=== PATIENT | female | born 1960 | race Caucasian/White ===

== ENCOUNTER 2019-12-01 18:06 | Emergency (ER) | payer SELFPAY ==
[2019-12-01 19:15] LABS: Absolute Lymphocytes (CBC) 1.5 K/uL (0.7-4.9); Basophils % 0.9 % (0-1.3); Lymphocytes % 25.7 % (15.3-44.8); RBC Red Blood Cell Count 4.62 M/uL (3.86-4.86)
--- NOTE | 2019-12-01 19:36 | RAD REPORT ---
EXAM DESCRIPTION: RAD - Chest Single View - 12/01/2019 7:23 pm CLINICAL HISTORY: CHEST PAIN Chest pain. COMPARISON: No comparisons FINDINGS: Portable technique limits examination quality. The lungs are grossly clear. The heart is normal in size. No displaced fractures. IMPRESSION: No acute intrathoracic process suspected.
[2019-12-01 19:37] LABS: Urine Bacteria <20 /HPF (<20); Urine Culture Reflex Order NOT NEEDED; Urine RBC <5 /HPF (NONE SEEN)
[2019-12-01 20:01] LABS: ALT/SGPT 17 U/L (12-78); AST/SGOT 10 U/L (15-37); Albumin 3.3 g/dL (3.4-5.0); Alkaline Phosphatase 96 U/L (45-117); BUN Blood Urea Nitrogen 9 mg/dL (7-18); Bicarbonate 29 mmol/L (21-32); Bilirubin Direct < 0.1 mg/dL (0-0.2); Bilirubin Total 0.1 mg/dL (0.2-1.0); Glucose Level 109 mg/dL (74-106); Magnesium 2.2 mg/dL (1.8-2.4); NT PRO-BNP 23 pg/mL (<125); Potassium 3.5 mmol/L (3.5-5.1); Sodium Level 142 mmol/L (136-145); Troponin (Emerg Dept Use Only) < 0.02 ng/mL (0.0-0.045)
--- NOTE | 2019-12-01 20:11 | EDPHYS ---
Physician Documentation [facility] Name: Lizabeth Major Age: 59 yrs Sex: Female : 1960 Arrival Date: 12/01/2019 Time: 18:09 Bed 14 Private MD: ED Physician Clyde Fajardo HPI: 12/02 01:35 This 59 yrs old Female presents to ER via EMS with complaints of Chest snw Tightness. 01:35 Onset: The symptoms/episode began/occurred last night. Associated signs and symptoms: snw The patient has no apparent associated signs or symptoms. Modifying factors: The patient symptoms are alleviated by gone at this time, the patient symptoms are aggravated by nothing. The patient has not experienced similar symptoms in the past. It is unknown whether or not the patient has recently seen a physician. 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 Historical: - Allergies: 12/01 18:12 No Known Allergies; ca1 - PMHx: 18:12 Hypertension; ca1 - PSHx: 18:12 Hysterectomy; Appendectomy; ca1 - Immunization history:: Adult Immunizations not up to date. - Social history:: Smoking status: Patient reports the use of cigarette tobacco products, smokes one-half pack cigarettes per day. - Ebola Screening: : Patient negative for fever greater than or equal to 101.5 degrees Fahrenheit, and additional compatible Ebola Virus Disease symptoms Patient denies exposure to infectious person Patient denies travel to an Ebola-affected area in the 21 days before illness onset No symptoms or risks identified at this time. ROS: 12/02 01:34 Constitutional: Negative for fever, chills, and weight loss, Eyes: Negative for injury, snw pain, redness, and discharge, ENT: Negative for injury, pain, and discharge, Neck: Negative for injury, pain, and swelling, Respiratory: Negative for shortness of breath, cough, wheezing, and pleuritic chest pain, Abdomen/GI: Negative for abdominal pain, nausea, vomiting, diarrhea, and constipation, Back: Negative for injury and pain, : Negative for injury, bleeding, discharge, and swelling, MS/Extremity: Negative for injury and deformity, Skin: Negative for injury, rash, and discoloration, Neuro: Negative for headache, weakness, numbness, tingling, and seizure. Abdomen/GI: Negative for abdominal pain, nausea, vomiting, diarrhea, and constipation. Cardiovascular: Positive for chest pain, of the chest. Exam: 01:34 Constitutional: This is a well developed, well nourished patient who is awake, alert, snw and in no acute distress. Head/Face: Normocephalic, atraumatic. Eyes: Pupils equal round and reactive to light, extra-ocular motions intact. Lids and lashes normal. Conjunctiva and sclera are non-icteric and not injected. Cornea within normal limits. Periorbital areas with no swelling, redness, or edema. ENT: Nares patent. No nasal discharge, no septal abnormalities noted. Tympanic membranes are normal and external auditory canals are clear. Oropharynx with no redness, swelling, or masses, exudates, or evidence of obstruction, uvula midline. Mucous membranes moist. Neck: Trachea midline, no thyromegaly or masses palpated, and no cervical lymphadenopathy. Supple, full range of motion without nuchal rigidity, or vertebral point tenderness. No Meningismus. Chest/axilla: Normal chest wall appearance and motion. Nontender with no deformity. No lesions are appreciated. Cardiovascular: Regular rate and rhythm with a normal S1 and S2. No gallops, murmurs, or rubs. Normal PMI, no JVD. No pulse deficits. Respiratory: Lungs have equal breath sounds bilaterally, clear to auscultation and percussion. No rales, rhonchi or wheezes noted. No increased work of breathing, no retractions or nasal flaring. Abdomen/GI: Soft, non-tender, with normal bowel sounds. No distension or tympany. No guarding or rebound. No evidence of tenderness throughout. Back: No spinal tenderness. No costovertebral tenderness. Full range of motion. Skin: Warm, dry with normal turgor. Normal color with no rashes, no lesions, and no evidence of cellulitis. MS/ Extremity: Pulses equal, no cyanosis. Neurovascular intact. Full, normal range of motion. Neuro: Awake and alert, GCS 15, oriented to person, place, time, and situation. Cranial nerves II-XII grossly intact. Motor strength 5/5 in all extremities. Sensory grossly intact. Cerebellar exam normal. Normal gait. Psych: Awake, alert, with orientation to person, place and time. Behavior, mood, and affect are within normal limits. Vital Signs: 12/01 18:12 BP 145 / 84; Pulse 88; Resp 17 S; Temp 98.1(O); Pulse Ox 98% on R/A; Weight 72.12 kg ca1 (R); Height 5 ft. 7 in. (170.18 cm) (R); Pain 6/10; 19:24 BP 139 / 87; Pulse 81; Resp 20 S; Pulse Ox 99% on R/A; ca1 20:20 BP 121 / 81; Pulse 81; Resp 17 S; Pulse Ox 99% on R/A; ca1 18:12 Body Mass Index 24.90 (72.12 kg, 170.18 cm) ca1 MDM: 18:10 Patient medically screened. snw 20:11 Data reviewed: vital signs, nurses notes, lab test result(s), EKG, radiologic studies. snw Data interpreted: Pulse oximetry: on room air is 99 %. Interpretation: normal. Counseling: I had a detailed discussion with the patient and/or guardian regarding: the historical points, exam findings, and any diagnostic results supporting the discharge/admit diagnosis, the presence of at least one elevated blood pressure reading (>120/80) during this emergency department visit, lab results, radiology results, need for 2nd troponin and EKG. Response to treatment: pt remains pain free. Refusal of service: The patient/guardian displays adequate decision making capability and despite a detailed discussion of alternatives, benefits, risks, and consequences refuses: pt does not wish to await repeat trop or EKG, states she will rted prn pain. Special discussion: Based on the patient's history, exam, and Dx evaluation, there is no indication for emergent intervention or inpatient Tx. It is understood by the patient/guardian that if the Sx's persist or worsen they need to return immediately for re-evaluation. Based on the history and exam findings, there is no indication for further emergent testing or inpatient evaluation. I discussed with the patient/guardian the need to see the eyewear manufacturing supervisor for further evaluation of the symptoms. I discussed with the patient/guardian the need to see the primary care provider for further evaluation of the symptoms. 12/01 18:53 Order name: Urine Culture snw 12/01 18:53 Order name: Urine Microscopic Only; Complete Time: 19:41 snw 12/01 18:53 Order name: Basic Metabolic Panel; Complete Time: 20:02 w 12/01 18:53 Order name: CBC with Diff; Complete Time: 19:23 w 12/01 18:53 Order name: LFT's; Complete Time: 20:02 w 12/01 18:53 Order name: Magnesium; Complete Time: 20:02 w 12/01 18:53 Order name: Urine Dipstick-Ancillary (obtain specimen); Complete Time: 18:51 snw 12/01 18:53 Order name: NT PRO-BNP; Complete Time: 20:02 w 12/01 18:53 Order name: PT-INR; Complete Time: 19:23 w 12/01 18:53 Order name: Troponin (emerg Dept Use Only); Complete Time: 20:02 w 12/01 18:53 Order name: XRAY Chest (1 view); Complete Time: 19:41 w 12/01 18:53 Order name: EKG; Complete Time: 18:54 w 12/01 18:53 Order name: Cardiac monitoring; Complete Time: 18:51 w 12/01 18:56 Order name: Urine Dipstick--Ancillary (enter results) bd 12/01 18:53 Order name: EKG - Nurse/Tech; Complete Time: 18:51 w 12/01 18:53 Order name: IV Saline Lock; Complete Time: 18:59 w 12/01 18:53 Order name: Labs collected and sent; Complete Time: 18:59 w 12/01 18:53 Order name: O2 Per Protocol; Complete Time: 18:51 w 12/01 18:53 Order name: O2 Sat Monitoring; Complete Time: 18:51 snw Administered Medications: No medications were administered Disposition: 12/02 16:42 Co-signature as Attending Physician, Clyde Fajardo MD. rn Disposition: 12/01/19 20:10 Discharged to Home. Impression: Chest pain, unspecified. - Condition is Stable. - Discharge Instructions: Nonspecific Chest Pain, Gastroesophageal Reflux Disease, Adult, Hypertension, Aspirin and Your Heart. - Prescriptions for Pepcid 20 mg Oral Tablet - take 1 tablet by ORAL route once daily; 20 tablet. - Medication Reconciliation Form, Thank You Letter, Antibiotic Education, Prescription Opioid Use form. - Follow up: Emergency Department; When: As needed; Reason: Worsening of condition. Follow up: Private Physician; When: 2 - 3 days; Reason: Recheck today's complaints, Continuance of care, Re-evaluation by your physician. Signatures: Dispatcher [employer] ED Lottie Oviedo, BOWL ATTENDANT-C BOWL ATTENDANT-Csnw Clyde Fajardo MD MD rn Acob, GELA Conley RN ca1 Corrections: (The following items were deleted from the chart) 12/01 20:23 20:10 12/01/2019 20:10 Discharged to Home. Impression: Chest pain, unspecified. ca1 Condition is Stable. Forms are Medication Reconciliation Form, Thank You Letter, Antibiotic Education, Prescription Opioid Use. Follow up: Emergency Department; When: As needed; Reason: Worsening of condition. Follow up: Private Physician; When: 2 - 3 days; Reason: Recheck today's complaints, Continuance of care, Re-evaluation by your physician. snw
--- NOTE | 2019-12-01 20:11 | ER ---
Nurse's Notes [facility] Name: Lizabeth Major Age: 59 yrs Sex: Female : 1960 Arrival Date: 12/01/2019 Time: 18:09 Bed 14 Private MD: Diagnosis: Chest pain, unspecified Presentation: 12/01 18:09 Presenting complaint: EMS states: Chest tightness since last night. Reports not feeling ca1 well for a few days, weakness and numbness on L upper arm, weakness on both legs, numbness on toes. Reports nausea and lightheadedness, cough x weeks and diarrhea x 2 days. Denies chills, fever and vomiting. Transition of care: patient was not received from another setting of care. Onset of symptoms was December 01, 2019. Risk Assessment: Do you want to hurt yourself or someone else? Patient reports no desire to harm self or others. Initial Sepsis Screen: Does the patient meet any 2 criteria? No. Patient's initial sepsis screen is negative. Does the patient have a suspected source of infection? No. Patient's initial sepsis screen is negative. Care prior to arrival: None. 18:09 Method Of Arrival: EMS: [facility] ca1 18:09 Acuity: VEDA 3 ca1 Historical: - Allergies: 18:12 No Known Allergies; ca1 - PMHx: 18:12 Hypertension; ca1 - PSHx: 18:12 Hysterectomy; Appendectomy; ca1 - Immunization history:: Adult Immunizations not up to date. - Social history:: Smoking status: Patient reports the use of cigarette tobacco products, smokes one-half pack cigarettes per day. - Ebola Screening: : Patient negative for fever greater than or equal to 101.5 degrees Fahrenheit, and additional compatible Ebola Virus Disease symptoms Patient denies exposure to infectious person Patient denies travel to an Ebola-affected area in the 21 days before illness onset No symptoms or risks identified at this time. Screenin:13 Abuse screen: Denies threats or abuse. Denies injuries from another. Nutritional ca1 screening: No deficits noted. Tuberculosis screening: No symptoms or risk factors identified. Fall Risk IV access (20 points). Assessment: 18:13 General: Appears in no apparent distress. comfortable, Behavior is calm, cooperative, ca1 appropriate for age. Pain: Complains of pain in mid-sternal area Pain does not radiate. Pain currently is 6 out of 10 on a pain scale. Quality of pain is described as burning, Pain began 1 day ago. Is intermittent. Neuro: Level of Consciousness is awake, alert, obeys commands, Oriented to person, place, time, situation, Appropriate for age. Neuro: Automatic Paint Sprayer Operator are equal bilaterally Moves all extremities. Speech is normal, Facial symmetry appears normal, Pupils are PERRLA, Intact. Cardiovascular: Heart tones S1 S2 present Capillary refill < 3 seconds Patient's skin is warm and dry. Cardiovascular: Reports lightheadedness, nausea. Respiratory: Airway is patent Respiratory effort is even, unlabored, Respiratory pattern is regular, symmetrical, Breath sounds are clear bilaterally. Respiratory: Reports cough that is since weeks ago. GI: Abdomen is flat, non-distended, Bowel sounds present X 4 quads. Abd is soft and non tender X 4 quads. : No signs and/or symptoms were reported regarding the genitourinary system. EENT: No signs and/or symptoms were reported regarding the EENT system. Derm: Skin is intact, is healthy with good turgor, Skin is pink, warm \T\ dry. Musculoskeletal: Circulation, motion, and sensation intact. Capillary refill < 3 seconds, Range of motion: intact in all extremities. 19:24 Reassessment: Patient appears in no apparent distress at this time. Patient and/or ca1 family updated on plan of care and expected duration. Pain level reassessed. Patient is alert, oriented x 3, equal unlabored respirations, skin warm/dry/pink. 20:20 Reassessment: Patient appears in no apparent distress at this time. Patient is alert, ca1 oriented x 3, equal unlabored respirations, skin warm/dry/pink. Vital Signs: 18:12 BP 145 / 84; Pulse 88; Resp 17 S; Temp 98.1(O); Pulse Ox 98% on R/A; Weight 72.12 kg ca1 (R); Height 5 ft. 7 in. (170.18 cm) (R); Pain 6/10; 19:24 BP 139 / 87; Pulse 81; Resp 20 S; Pulse Ox 99% on R/A; ca1 20:20 BP 121 / 81; Pulse 81; Resp 17 S; Pulse Ox 99% on R/A; ca1 18:12 Body Mass Index 24.90 (72.12 kg, 170.18 cm) ca1 ED Course: 18:09 Patient arrived in ED. ca1 18:09 Lottie Oviedo FNP-C [facility]. snw 18:09 Clyde Fajardo MD is Attending Physician. snw 18:11 Triage completed. ca1 18:12 Arm band placed on right wrist. ca1 18:13 Patient has correct armband on for positive identification. Placed in gown. Bed in low ca1 position. Call light in reach. Side rails up X 1. case monitor on. Pulse ox on. NIBP on. Warm blanket given. 18:13 Patient maintains SpO2 saturation greater than 95% on room air. ca1 18:24 Yael Pritchett, GELA is Primary Nurse. ca1 18:25 EKG done, by ED staff, reviewed by Lottie PRICE. ca1 18:55 Initial lab(s) drawn, by me, sent to lab. Inserted saline lock: 22 gauge in right ca1 antecubital area, using aseptic technique. Blood collected. 19:25 XRAY Chest (1 view) In Process Unspecified. EDMS 19:43 No provider procedures requiring assistance completed. ca1 20:22 IV discontinued, intact, bleeding controlled, No redness/swelling at site. Pressure ca1 dressing applied. 20:[address] [facility] they will send someone to pick her up. mw2 Administered Medications: No medications were administered Outcome: 20:10 Discharge ordered by . snw 20:22 Discharged to home ambulatory. ca1 20:22 Condition: stable 20:22 Discharge instructions given to patient, Instructed on discharge instructions, follow up and referral plans. medication usage, Demonstrated understanding of instructions, follow-up care, medications, Prescriptions given X 1. 20:23 Patient left the ED. ca1 Signatures: Dispatcher [employer] EDMS Lottie Oviedo FNP-C SILO PAINTER-Csnw Tamica William mw2 Yael Pritchett RN RN ca1
[2019-12-01 20:33] LABS: Urine Glucose NEGATIVE (NEG); Urine Specific Gravity 1.015 (1.005-1.030)
[2019-12-01 20:34] LABS: Urine Blood NEGATIVE (NEG); Urine Protein NEGATIVE (NEG)
--- NOTE | 2019-12-02 06:36 | EKG ---
Test Date: 2019-12-01 Test Time: 18:23:52 Books Salesperson: BILLY MEASUREMENT RESULTS: Intervals: Rate: 79 DE: 152 QRSD: 86 QT: 396 QTc: 454 Ruffin: P: 59 DE: 152 QRS: 75 T: 64 INTERPRETIVE STATEMENTS: Normal sinus rhythm Normal ECG No previous ECG available for comparison Electronically Signed On 12-02-19 06:36:17 ARCADE TECHNICIAN by Bobo Armas
[2019-12-02 11:29] VITALS: BP 145/84; TEMP 98.1; O2SAT 98
== END 2019-12-01 20:23 | disposition home or self-care (01) ==
LOC: ER 18:06
DX: R07.9 Chest pain, unspecified (principal); F17.210 Nicotine dependence, cigarettes, uncomplicated
CPT/HCPCS: 36415; 71045; 80048; 80076; 81003; 81015; 83735; 83880; 84484; 85025; 85610; 87086; 87088; 93005; 99285